=== PATIENT | female | born 1950 | race Caucasian/White ===

== ENCOUNTER 2024-01-17 23:44 | Emergency (ER) | payer OTHER, SELFPAY ==
[2024-01-17 23:51] VITALS: BP 165/90
--- NOTE | 2024-01-18 02:08 | ED.GENMED ---
History of Present Illness
General
Chief Complaint: Skin Surface Trauma
Source: patient
Exam Limitations: none
Time Seen by Provider: 01/18/24 01:36
Nursing documentation reviewed up to this point in time: agreed with
History of Present Illness
History of Present Illness:
Patient presents to ED secondary to persistent bleeding from her right lower leg, after she scratched it this evening. Patient has applied multiple Band-Aids, with continued bleeding. Patient does not take any blood thinning medications. Denies
dizziness or weakness. Denies shortness of breath. Denies previous history of similar symptoms. At the time of evaluation ED, however, pt states that her bleeding has stopped.
Review of Systems
Review of Systems
Allergies reviewed?: Yes
All Other Systems: ROS reviewed and negative except as documented in HPI and ROS
Constitutional: Reports no symptoms
EENT: Reports no symptoms
Musculoskeletal: Reports no symptoms
Skin: Reports other (leg bleeding)
Neurological: Reports no symptoms
Phy Exam
Physical Exam
Physical Exam:
Physical Exam
General: no apparent distress, not acutely ill. afebrile
Head: nc/at. eomi
Neck: supple. normal range of motion
Neuro: alert and oriented. no focal neurological deficits
Skin: RLE: varicose vein noted with clotted blood, without active bleeding. nontender.
Psychiatric: well kept. interactive and cooperative
Extremities: no edema. no calf tenderness.
Course
Vital Signs
Initial and Last Documented VS:
Initial Vital Signs
Temp Pulse Resp BP Pulse Ox
97.8 F 96 22 165/90 95
01/17/24 23:51 01/17/24 23:51 01/17/24 23:51 01/17/24 23:51 01/17/24 23:51
Last Documented Vital Signs
Temp Pulse Resp BP Pulse Ox
97.8 F 89 20 165/90 95
01/17/24 23:51 01/18/24 00:00 01/18/24 00:00 01/17/24 23:51 01/18/24 00:00
MDM/Problems Addressed
MDM/Problems Addressed:
History and exam consistent with likely bleeding from ruptured varicose vein from acute trauma caused when patient scratched the leg. However, patient does not take any blood thinning medications and Band-Aid applied at home appear to have stopped
the bleeding. Gelfoam will be applied prior to discharge, with recommendation to follow-up with PCP with any further concerns.
*Critical Care Note
Total Time (30-74mins, 75-104mins- exclusive of procedures): Not Applicable
ED Attending Note
-
Portions of this chart may have been created with voice recognition software.� Occasional wrong word or��sound alike� substitutions may have occurred due to the inherent limitations of voice recognition software.
Discharge Plan
Departure
Patient Disposition: Home (Routine Discharge)
Date of Disposition: 01/18/24
Time of Disposition: 02:08
Patient with high blood pressure during this ER visit?: Yes
Condition: Good
Discharge Problem:
Bleeding from varicose veins of lower extremity
Instructions: Varicose Veins (DC)
Prescriptions:
No Action
multivitamin Tablet
1 tab PO DAILY
omeprazole 20 mg Capsule,Delayed Release(Dr/Ec)
15 mg PO DAILY
albuterol sulfate 90 mcg/actuation Hfa Aerosol Inhaler
2 puff INHALATION Q6H PRN (Reason: shortness of breath)
fluticasone furoate-vilanterol [Breo Ellipta] 100-25 mcg/dose Blister With Device
1 inh INHALATION DAILY
levothyroxine 137 mcg Tablet
137 mcg PO .6DAYS A WEEK
levothyroxine 137 mcg Tablet
68.5 mcg PO VERONICA
fexofenadine [Daina] 180 mg Tablet
180 mg PO DAILY
calcium carbonate-vitamin D3 [Calcium 600 + D(3)] 600 mg-10 mcg (400 unit) Tablet
1 tab PO DAILY
Probiotic 3 billion cell Capsule
3,000 mmu cells PO DAILY
diphenhydramine-acetaminophen [Tylenol PM Extra Strength] 25-500 mg Tablet
1 tab PO HS PRN (Reason: sleep)
Activity Restrictions/Additional Instructions:
As discussed, please follow-up with your primary care physician with any further concerns.
Interventions
Interventions:
*Risk Screen - Suicide Last Done: 01/17/24 23:51
*General Assessment Last Done: 01/18/24 02:14
*Neglect/Abuse Screening Last Done: 01/17/24 23:51
ED- Fall Risk Assessment Last Done: 01/18/24 02:14
*ED COVID-19 Vaccine History Last Done: 01/18/24 02:14
*Nursing Disposition Last Done: 01/18/24 02:14
ED-Skin Assessment Last Done: 01/18/24 01:43
Discharge Date and Time
Discharge Date/Time: 01/18/24 02:16
Print Language: [id number]
== END 2024-01-18 02:16 | disposition home or self-care (01) ==
LOC: EMR 23:44
PROVIDERS: EMERGENCY PHYSICIAN Emergency Medicine; FAMILY PHYSICIAN Family Medicine
DX: I83.891 Varicose veins of right lower extremity with other complications (principal); R03.0 Elevated blood-pressure reading, without diagnosis of hypertension; R01.1 Cardiac murmur, unspecified; J45.909 Unspecified asthma, uncomplicated; K21.9 Gastro-esophageal reflux disease without esophagitis; G47.30 Sleep apnea, unspecified; M19.90 Unspecified osteoarthritis, unspecified site; E03.9 Hypothyroidism, unspecified; Z86.16 Personal history of COVID-19; Z87.891 Personal history of nicotine dependence; Z88.2 Allergy status to sulfonamides
CPT/HCPCS: 99282